=== PATIENT | male | born 1965 | race Two or more races ===

== ENCOUNTER 2024-04-16 22:56 | Inpatient (IN) | payer OTHER ==
[~2024-04-16] VITALS: Ht 180.3 cm; Wt 92.3 kg
[2024-04-16 23:47] LABS: BASOPHILS % (AUTO) 0.5 % (0-1); EOSINOPHILS % (AUTO) 0.3 % (0-6); HEMATOCRIT 51.2 % (42.0-52.0); LYMPHOCYTES # (AUTO) 1.4 X10'3 (1.1-4.8); LYMPHOCYTES % (AUTO) 18.2 % (21-51); MEAN CORPUSCULAR HEMOGLOBIN 29.8 PG (27.0-31.0); MEAN CORPUSCULAR HGB CONC 33.2 g/dL (33.0-36.5); MEAN CORPUSCULAR VOLUME 89.6 FL (78-98); MEAN PLATELET VOLUME 7.7 FL (7.4-10.4); MONOCYTES # (AUTO) 0.5 X10'3 (0-0.9); MONOCYTES % (AUTO) 6.6 % (2-12); NEUTROPHILS # (AUTO) 5.7 X10'3 (1.8-7.7); NEUTROPHILS % (AUTO) 74.4 % (42-75); PLATELET COUNT 256 X10'3 (140-440); RED BLOOD COUNT 5.72 X10'6 (4.70-6.10); RED CELL DISTRIBUTION WIDTH 14.5 % (11.5-14.5); WHITE BLOOD COUNT 7.6 X10'3 (4.5-11.0)
[2024-04-16 23:57] LABS: ALANINE AMINOTRANSFERASE 86 U/L (12-78); ALBUMIN 3.9 G/DL (3.4-5.0); ALBUMIN/GLOBULIN RATIO 1.1 (1.1-1.5); ALKALINE PHOSPHATASE 92 IU/L (46-116); ANION GAP 11 (8-16); ASPARTATE AMINO TRANSFERASE 40 U/L (10-37); BILIRUBIN,TOTAL 0.7 MG/DL (0.1-1.0); BLOOD UREA NITROGEN 23 MG/DL (7-18); BUN/CREATININE RATIO 13.3 (10.0-20.0); CALCIUM 9.1 MG/DL (8.5-10.1); CHLORIDE 101 MMOL/L (99-107); CREATININE 1.73 MG/DL (0.60-1.10); GLUCOSE 113 MG/DL (70-104); POTASSIUM 4.1 MMOL/L (3.5-5.1); SODIUM 139 MMOL/L (135-145); TOTAL CARBON DIOXIDE 27.1 MMOL/L (24-32); TOTAL PROTEIN 7.5 G/DL (6.4-8.2); eCRCL 50 ML/MIN; eGFR 41 ML/MIN
[2024-04-17] VITALS (15 sets, daily range): BP systolic 126–162; BP diastolic 69–89; PULSE 52–78; RESP 14–18; TEMP 97.6–98.4; O2SAT 94–99
[2024-04-17 00:05] LABS: PRO BRAIN NATRIURETIC PEPTIDE 38 PG/ML (0-125)
[2024-04-17] MEDS: aspirin 81mg tab.chew PO ONE (02:51)
[2024-04-17] MEDS ORDERED: mag hydrox/Alum hydrox/simeth 30ml oral suspension PO PRN (03:30)
[2024-04-17] MEDS ORDERED: acetaminophen 325mg tablet PO PRN (03:30)
[2024-04-17] MEDS ORDERED: ondansetron/PF 4mg/2ml inj IV PRN (03:30)
[2024-04-17] MEDS: normal saline 1000ml 1,000 ML IV SCH (03:30)
[2024-04-17] MEDS ORDERED: potassium Cl 40MEQ/1/2NS 520ml 520 ML IV PRN (03:30)
[2024-04-17] MEDS ORDERED: potassium Cl 20 mEq SR tablet PO PRN ×2 (03:30)
[2024-04-17] MEDS ORDERED: metoprolol tartrate 1mg/ml inj IV PRN (03:30)
[2024-04-17] MEDS ORDERED: magnesium hydroxide 30ml (MOM) UD suspension PO PRN (03:30)
[2024-04-17] MEDS ORDERED: magnesium sulf-water 2g/50mL 50 ML IV PRN (03:30)
[2024-04-17] MEDS ORDERED: aminophylline 250mg/10ml inj. IV PRN (03:30)
[2024-04-17] MEDS ORDERED: magnesium sulf-water 4G/100mL 100 ML IV PRN (03:30)
[2024-04-17] MEDS ORDERED: magnesium Cl slow-release 64mg tablet PO PRN (03:30)
[2024-04-17] MEDS ORDERED: nitroGLYCERIN 0.4mg SUBLingual tab SL PRN (03:30)
[2024-04-17] MEDS ORDERED: TEST200V33 IM (03:47)
[2024-04-17] MEDS ORDERED: LOSA1TAB36 PO (03:47)
[2024-04-17] MEDS ORDERED: MULT-1074 PO (03:47)
[2024-04-17] MEDS ORDERED: ATOR-2 PO (03:47)
[2024-04-17 06:58] LABS: MAGNESIUM 1.9 MG/DL (1.5-2.4); POTASSIUM 3.9 MMOL/L (3.5-5.1)
[2024-04-17] MEDS: K and/or MAG REPLACEMENT MC SCH (08:00)
[2024-04-17] MEDS: docusate sod 100mg capsule PO SCH (08:00)
[2024-04-17] MEDS: heparin, porcine 5000 units/ml vial SQ SCH (08:00)
[2024-04-17] MEDS: regadenoson 0.4mg/5ml syringe IV PRN (09:07)
[2024-04-18 06:00] VITALS: BP 140/79; PULSE 59; RESP 14; TEMP 98.1; O2SAT 98
[2024-04-18 06:04] LABS: BASOPHILS % (AUTO) 0.8 % (0-1); EOSINOPHILS # (AUTO) 0.1 X10'3 (0-0.9); EOSINOPHILS % (AUTO) 2.2 % (0-6); HEMATOCRIT 46.4 % (42.0-52.0); HEMOGLOBIN 15.5 g/dl (14.0-17.9); LYMPHOCYTES # (AUTO) 2.1 X10'3 (1.1-4.8); LYMPHOCYTES % (AUTO) 34.2 % (21-51); MEAN CORPUSCULAR HEMOGLOBIN 30.1 PG (27.0-31.0); MEAN CORPUSCULAR HGB CONC 33.5 g/dL (33.0-36.5); MEAN CORPUSCULAR VOLUME 89.9 FL (78-98); MEAN PLATELET VOLUME 7.6 FL (7.4-10.4); MONOCYTES # (AUTO) 0.5 X10'3 (0-0.9); MONOCYTES % (AUTO) 7.7 % (2-12); NEUTROPHILS # (AUTO) 3.3 X10'3 (1.8-7.7); NEUTROPHILS % (AUTO) 55.1 % (42-75); PLATELET COUNT 203 X10'3 (140-440); RED BLOOD COUNT 5.16 X10'6 (4.70-6.10); RED CELL DISTRIBUTION WIDTH 14.8 % (11.5-14.5); WHITE BLOOD COUNT 6.1 X10'3 (4.5-11.0)
[2024-04-18 06:20] LABS: ALANINE AMINOTRANSFERASE 66 U/L (12-78); ALBUMIN 3.1 G/DL (3.4-5.0); ALBUMIN/GLOBULIN RATIO 1.1 (1.1-1.5); ALKALINE PHOSPHATASE 68 IU/L (46-116); ANION GAP 4 (8-16); ASPARTATE AMINO TRANSFERASE 31 U/L (10-37); BILIRUBIN,TOTAL 1.1 MG/DL (0.1-1.0); BLOOD UREA NITROGEN 22 MG/DL (7-18); BUN/CREATININE RATIO 16.8 (10.0-20.0); CALCIUM 8.2 MG/DL (8.5-10.1); CHLORIDE 107 MMOL/L (99-107); CHOL/HDL RATIO 4.7 (0.00-4.99); CHOLESTEROL 187 MG/DL (0-200); CREATININE 1.31 MG/DL (0.60-1.10); GLUCOSE 92 MG/DL (70-104); HDL CHOLESTEROL 40 MG/DL (35-60); LDL CHOLESTEROL 120 MG/DL (50-100); MAGNESIUM 1.8 MG/DL (1.5-2.4); POTASSIUM 4.1 MMOL/L (3.5-5.1); SODIUM 139 MMOL/L (135-145); TRIGLYCERIDES 121 MG/DL (20-135); eCRCL 65 ML/MIN; eGFR 56 ML/MIN
[2024-04-18 08:00] VITALS: BP_SYST 135; BP_SYST 145; BP_SYST 147; BP_SYST 152; BP_SYST 154; BP_DIAS 63; BP_DIAS 71; BP_DIAS 77; BP_DIAS 82; PULSE 63; PULSE 64; PULSE 66; RESP 14; O2SAT 98
[2024-04-18 11:00] VITALS: BP 147/71; PULSE 57; RESP 19; TEMP 98.7; O2SAT 96
[2024-04-18] MEDS ORDERED: LOSA50TA64 PO (16:58)
[2024-04-18] MEDS ORDERED: AMLO5TAB16 PO (16:58)
== END 2024-04-18 16:37 | disposition home or self-care (01) | DRG 641 ==
LOC: ER 22:58 → ED HOLD 04-17 03:42 → UNDOADMIN 04-17 04:07 → PCU 3S 04-17 05:10 → ED HOLD 04-17 05:10
PROVIDERS: ADMIT Internal Medicine Critical Care Medicine; ATTEND Internal Medicine
DX: E86.0 Dehydration (principal); N17.9 Acute kidney failure, unspecified; I10 Essential (primary) hypertension; T75.3XXA Motion sickness, initial encounter; R74.01 Elevation of levels of liver transaminase levels; H81.13 Benign paroxysmal vertigo, bilateral; E78.5 Hyperlipidemia, unspecified; R73.9 Hyperglycemia, unspecified; Z79.899 Other long term (current) drug therapy; Z82.3 Family history of stroke
CPT/HCPCS: 36415; 70450; 71045; 76700; 78452; 80053; 80061; 83036; 83735; 83880; 84132; 84484; 85025; 87081; 93005; 93017; 93306; 93880; 99285; A9500; G0378; J1644; J2785; J7030